=== PATIENT | female | born 1990 | race Caucasian/White ===

== ENCOUNTER 2018-05-16 10:07 | Emergency (ER) | payer BC ==
[2018-05-16 10:31] VITALS: BP 117/74
[2018-05-16] MEDS ORDERED: Fluorescein Sod TOPICAL 0.6* 0.6 MG TEST OPHTHALMIC ONE ×2 (10:32→10:37)
[2018-05-16] MEDS ORDERED: BSS OPTH.SOL* BTL ONE (10:33)
[2018-05-16] MEDS ORDERED: Tetracaine 0.5% OPTH.SOL 4 ML* 1 DROP BTL ONE (10:33)
[2018-05-16] MEDS ORDERED: BSS OPTH.SOL* BTL OPHTHALMIC ONE (10:37)
--- NOTE | 2018-05-16 10:42 | UC ---
Eye Complaint HPI - HPI Summary HPI Summary: left eye pain began in the night last night awoke today with erythema, tearing and light sensitive left eye, did not sleep with contacts in. Is not suprised by vision in left eye with out contact as that is her usual - History of Current Complaint Chief Complaint: UCEye Stated Complaint: RIGHT EYE COMPLAINT Time Seen by Provider: 05/16/18 10:35 Hx Obtained From: Patient Hx Last Menstrual Period: 05/15/18 (Nexplanon) ?: No Onset/Duration: Sudden Onset, Lasting Days - 1 Timing: Constant Pain Intensity: 1 Pain Scale Used: 0-10 Numeric Location of Injury: Conjunctiva Character: Foreign Body Sensation Aggravating Factor(s): Light Alleviating Factor(s): Nothing Associated Signs And Symptoms: Positive: Drainage (Clear) - Allergies/Home Medications Allergies/Adverse Reactions: Allergies Allergy/AdvReac Type Severity Reaction Status Date / Time No Known Allergies Allergy Verified 05/16/18 10:24 Home Medications: Home Medications Etonogestrel [Nexplanon] 68 mg IMPLANT ONCE 05/16/18 [History Confirmed 05/16/18 ] Ibuprofen TAB* [Advil TAB*] 400 mg PO Q6H PRN 05/16/18 [History Confirmed ] PMH/Surg Hx/FS Hx/Imm Hx Previously Healthy: Yes - Surgical History Surgical History: Yes Surgery Procedure, Year, and Place: Tonsillectomy, [place]; Adnoidectomy and Sinoplasty, 1991, [place] - Family History Known Family History: Positive: None - Social History Occupation: Employed Full-time Lives: Alone Alcohol Use: None Substance Use Type: None Smoking Status (MU): Never Smoked Tobacco Review of Systems Constitutional: Negative Skin: Negative Eyes: Drainage - right, Eye Redness - right ENT: Negative Respiratory: Negative Cardiovascular: Negative Gastrointestinal: Negative Genitourinary: Negative Motor: Negative Neurovascular: Negative Musculoskeletal: Negative Neurological: Negative Psychological: Negative Is Patient Immunocompromised?: No All Other Systems Reviewed And Are Negative: Yes Physical Exam Triage Information Reviewed: Yes Appearance: Well-Appearing, No Pain Distress, Well-Nourished Vital Signs: Initial Vital Signs Temp 98.4 F 05/16/18 10:20 Pulse 84 05/16/18 10:20 Resp 16 05/16/18 10:20 BP 117/74 05/16/18 10:20 Pulse Ox 98 08/05/18 10:20 Vital Signs Reviewed: Yes Eye Exam: Other Eyes: Positive: Conjunctiva Clear - left, Conjunctiva Inflamed - right, Discharge - clear from right eye, Other: - perrla, eomi ENT Exam: Normal ENT: Positive: Normal ENT inspection, Hearing grossly normal. Negative: Trismus , Muffled voice, Hoarse voice Dental Exam: Normal Neck exam: Normal Neck: Positive: Supple, Nontender Respiratory Exam: Normal Respiratory: Positive: No respiratory distress, No accessory muscle use Cardiovascular Exam: Normal Cardiovascular: Positive: Pulses Normal, Brisk Capillary Refill Musculoskeletal Exam: Normal Musculoskeletal: Positive: Strength Intact, ROM Intact, No Edema Neurological Exam: Normal Neurological: Positive: Alert, Muscle Tone Normal Psychological Exam: Normal Skin Exam: Normal Re-Evaluation - Re-Evaluation First Eval Change: Improved - complete relief of pain with tetracaine, corneal ulceration 1 mm diameter at 12 o'clock on cornea Eye Complaint Course/Dx - Course Course Of Treatment: Cipro drops orginally orders (pharmacy called med on back order changed to ofloxin), follow with opthomology in 1 day referrals made - Differential Dx/Diagnosis Provider Diagnoses: corneal ulceration OS Discharge - Sign-Out/Discharge Documenting (check all that apply): Patient Departure - Discharge Plan Condition: Stable Disposition: HOME Prescriptions: Ciprofloxacin 0.3% OPTH.NELSON* [Cipro 0.3% Opth*] 2 drop RIGHT EYE SEE INSTRUCTIONS #1 btl Patient Education Materials: Ibuprofen (By mouth), Corneal Ulcer (ED) Referrals: Rolf Vasquez MD [Medical Doctor] - 1 Day Danyelle Mckinney MD [Medical Doctor] - 1 Day No Primary Care Phys,NOPCP [Primary Care Provider] - Additional Instructions: Cipro eye drops 05/16/18-2 drops every 15 minutes for 6 hours then every 30 minutes for the rest of the day while awake 05/17/18-2 drops every hour while awake 05/18-05/23/18 2 drops every 4 hours while awake - Billing Disposition and Condition Condition: STABLE Disposition: Home Attestation Statement User Type: Provider - I was available for consult. This patient was seen by the BHARTI. The patient was not presented to, seen by, or examined by me. -Rupinder
== END 2018-05-16 11:05 | disposition home or self-care (01) ==
LOC: UCCORT 10:07
DX: H16.002 Unspecified corneal ulcer, left eye (principal)
CPT/HCPCS: 99202; A9270-GY; G0463

== ENCOUNTER 2018-05-31 17:25 | Emergency (ER) | payer BC ==
--- NOTE | 2018-05-31 17:40 | UC ---
Throat Pain/Nasal Tirso HPI - HPI Summary HPI Summary: 27 yo female presents with left eye redness and itching since yesterday. She tells me that about 2 weeks ago she had a corneal ulcer in her RIGHT eye. She was placed on anbx eye drops for this, saw and eye doctor, and has not been wearing her contacts. Yesterday noticed that her LEFT eye was red. This morning was mildly itchy. Is still wearing her glasses daily and not her contacts. Denies fever, chills, vision changes, or injury to the eye. - History of Current Complaint Stated Complaint: LEFT EYE COMPLAINT Time Seen by Provider: 05/31/18 17:40 Hx Obtained From: Patient Hx Last Menstrual Period: 05/15/18 (Nexplanon) Onset/Duration: Sudden Onset Pain Intensity: 0 Pain Scale Used: 0-10 Numeric - Allergies/Home Medications Allergies/Adverse Reactions: Allergies Allergy/AdvReac Type Severity Reaction Status Date / Time No Known Allergies Allergy Verified 05/31/18 17:52 PMH/Surg Hx/FS Hx/Imm Hx - Additional Past Medical History Additional PMH: None Previously Healthy: Yes - Surgical History Surgical History: Yes Surgery Procedure, Year, and Place: Tonsillectomy, 2009, [place]; Adnoidectomy and Sinoplasty, 1991, [place] - Family History Known Family History: Positive: None - Social History Occupation: Employed Full-time Lives: With Family Alcohol Use: None Substance Use Type: None Smoking Status (MU): Never Smoked Tobacco Review of Systems Constitutional: Negative Skin: Negative Eyes: Eye Redness ENT: Negative Respiratory: Negative Cardiovascular: Negative Neurological: Negative Psychological: Negative All Other Systems Reviewed And Are Negative: Yes Physical Exam - Summary Physical Exam Summary: GENERAL: NAD. WDWN. No pain distress. SKIN: No rashes, sores, lesions, or open wounds. HEENT: Head: AT/NC Eyes: EOM intact. Conjunctiva clear without inflammation or discharge. LEFT EYE: Mild scleral injection. Mild clear discharge Ears: Hearing grossly normal. TMs intact, no bulging, erythema, or edema. Nose: NTTP maxillary and frontal sinus. Throat: Posterior oropharynx without exudates, erythema, or tonsillar enlargement. Uvula midline. NECK: Supple. Nontender. No lymphadenopathy. CHEST: CTAB. No r/r/w. No accessory muscle use. Breathing comfortably and in no distress. CV: RRR. Without m/r/g. Pulses intact. Cap refill <2seconds NEURO: Alert. CN II-XII grossly intact. PSYCH: Age appropriate behavior. Triage Information Reviewed: Yes Vital Signs: Vital Signs: Temp Pulse Resp BP Pulse Ox 98.4 F 57 18 116/69 100 05/31/18 17:49 05/31/18 17:49 05/31/18 17:49 05/31/18 17:49 05/31/18 17:49 Vital Signs Reviewed: Yes Throat Pain/Nasal Course/Dx - Course Course Of Treatment: Visual acuity is 20/20. Suspect subconjunctival hemorrhage , but given her recent corneal ulcer in her opposite eye - will cover her with ofloxacin eye drops. No fluorescein dye exam was performed due to availability - the item is on bead trimmer back order. Advised pt that if her symptoms worsen or do not improve - to follow up HENRRY with her eye doctor. Pt agreeable to plan. - Differential Dx/Diagnosis Provider Diagnoses: Left eye redness Discharge - Sign-Out/Discharge Documenting (check all that apply): Patient Departure All imaging exams completed and their final reports reviewed: No Studies - Discharge Plan Condition: Stable Disposition: HOME Prescriptions: Ofloxacin 0.3%(Ophth)(Nf) [Ocuflox OPTH 0.3%(NF)] 5 drop LEFT EYE BID #1 btl Patient Education Materials: Subconjunctival Hemorrhage (ED) Referrals: No Primary Care Phys,NOPCP [Primary Care Provider] - Additional Instructions: If you develop a fever, shortness of breath, chest pain, new or worsening symptoms - please call your PCP or go to the ED. 1) If your eye does not improve in 2-3 days, please schedule a follow up with your eye doctor as soon as possible - Billing Disposition and Condition Condition: STABLE Disposition: Home
[2018-05-31 17:52] VITALS: BP 116/69
== END 2018-05-31 17:56 | disposition home or self-care (01) ==
LOC: UCCORT 17:25
DX: H57.8 Other specified disorders of eye and adnexa (principal)
CPT/HCPCS: 99212; G0463